=== PATIENT | female | born 1990 | race Two or more races ===

== ENCOUNTER 2021-06-15 16:37 | Emergency (ER) | payer SELFPAY ==
[~2021-06-15] VITALS: Ht 165.1 cm; Wt 52.2 kg
[2021-06-15 16:41] VITALS: BP 121/76
== END 2021-06-15 17:49 | disposition home or self-care (01) ==
LOC: ER 16:39
DX: E11.9 Type 2 diabetes mellitus without complications (principal); Z76.0 Encounter for issue of repeat prescription